=== PATIENT | male | born 1990 | race Caucasian/White ===

== ENCOUNTER 2018-12-10 16:22 | Outpatient (CLI) | payer MEDICAID, SELFPAY ==
[2018-12-10 18:04] LABS: Glucose 93 mg/dL (70-100)
[2018-12-10 18:23] LABS: Vitamin D 25 Total 27.4 ng/ml (30-100)
[2018-12-10 18:35] LABS: Vitamin B12 259 pg/mL (193-986)
== END 2018-12-10 16:42 ==
PROVIDERS: Internal Medicine Sleep Medicine; PCP General Practice; Visit Provider General Practice
DX: E55.9 Vitamin D deficiency, unspecified (principal); R53.83 Other fatigue; R73.09 Other abnormal glucose
CPT/HCPCS: 36415; 82306; 82947; 82607

== ENCOUNTER 2019-07-01 16:01 | Outpatient (CLI) | payer MEDICAID, SELFPAY ==
[2019-07-01 18:42] LABS: Vitamin D 25 Total 36.3 ng/ml (30-100)
[2019-07-01 18:46] LABS: Vitamin B12 557 pg/mL (193-986)
== END 2019-07-01 16:21 ==
PROVIDERS: PCP General Practice; Visit Provider Internal Medicine Sleep Medicine
DX: E55.9 Vitamin D deficiency, unspecified (principal); R53.83 Other fatigue
CPT/HCPCS: 36415; 82306; 82607

== ENCOUNTER 2019-10-14 13:47 | Outpatient (CLI) | payer MEDICAID, SELFPAY ==
[2019-10-14 14:55] LABS: Hemoglobin A1C 10.9 % (4.5-6.2)
[2019-10-14 15:16] LABS: Anion Gap 13.6 mmol/L (3-11); BUN 20 mg/dL (7-18); CO2 23.4 mmol/L (21.0-32.0); CREATININE 1.27 mg/dL (0.70-1.30); Calcium 10.1 mg/dL (8.5-10.1); Chloride 90 mmol/L (98-107); Potassium 4.5 mmol/L (3.5-5.1); Sodium 127 mmol/L (136-145)
[2019-10-14 15:32] LABS: Glucose 709 mg/dL (74-106)
[2019-10-15 15:16] LABS: PSA, Screening 0.5 ng/mL (0.0-2.5)
== END 2019-10-14 14:07 ==
PROVIDERS: PCP Family Medicine; Visit Provider Nurse Practitioner Gerontology
DX: N28.9 Disorder of kidney and ureter, unspecified (principal); R81 Glycosuria; R35.0 Frequency of micturition; R39.9 Unspecified symptoms and signs involving the genitourinary system; Z12.5 Encounter for screening for malignant neoplasm of prostate
CPT/HCPCS: 36415; 80048; 84153; 83036

== ENCOUNTER 2019-10-14 16:25 | Emergency (ER) | payer MEDICAID, SELFPAY ==
[2019-10-14 16:28] VITALS: BP 131/96; PULSE 103; RESP 16; TEMP 36.2; O2SAT 96
[2019-10-14 16:37] VITALS: RESP 16
--- NOTE | 2019-10-14 16:57 | W.ED.GENAD ---
Discharge Plan Disposition Patient Disposition: HOME Condition: Good Discharge Details Chief Complaint: Diabetes Clinical Impression: Diabetes, Acute hyperglycemia Primary Care Provider: Livan Stevenson ED Provider: Mohsen Jenkins Home Meds and New Rx's Prescriptions: New (DME) Advanced Gluc Meter Test Strip Strip See Rx Instructions .ROUTE .MEDSUPPLY Qty: 50 RF: 0 (DME) blood-glucose meter Kit See Rx Instructions .ROUTE .MEDSUPPLY Qty: 1 RF: 0 metformin 500 mg tablet 500 mg PO BID 30 Days Qty: 60 RF: 0 No Action venlafaxine 100 MG tablet 225 mg PO DAILY AM RF: 0 Discharge Instructions Instructions: How to Check Your Blood Sugar (ED), Meal Planning with Diabetes Exchanges (GEN), Diabetic Hyperglycemia (ED) Additional Instructions: It does appear that you have diabetes. At this time it is important to follow-up closely with your primary care provider. Please check your blood sugars every 6-8 hours monitor them closely and document them regularly. As we discussed please do your best to exercise as often as possible, avoid any sugars, carbs, other things that can worsen your diabetes. Drink plenty of fluids. If you notice any worsening of your symptoms, or any new symptoms such as vomiting, diarrhea, fever, chills, shortness of breath, chest pain, numbness, weakness, or fainting , please return immediately to the emergency department for reevaluation. Please follow up with your primary care provider as soon as possible for reassessment and reevaluation. As always, it was a pleasure participating in your medical care today. Referrals: Livan Stevenson [Primary Care Provider] - Discharge Data Discharge Date/Time-TO BE ENTERED AT DEPARTURE: 10/14/19 17:33 Medical Decision Making This is a very pleasant 29-year-old male with no significant past medical history but who does have a family history positive for type 2 diabetes who presents today for laboratory abnormality. Labs were drawn secondary to his polydipsia that he has been having. Sodium was noted to be low, sugar was 700, and hemoglobin A1c was greater than 10. Aside for the symptoms of polydipsia the patient has no other complaints of vision changes, fever, flank pain, or any other complaints including mental status change. Physical exam is unremarkable, vital signs stable. Bedside Accu-Chek demonstrates a blood sugar of 483, decision was made to give the patient a small amount of subcu insulin, blood sugar improved after this, with no other significant laboratory abnormalities I feel that there is no indication for IV or oral repeat labs at this time. The patient's excellent clinical disposition I do feel that he is stable for discharge. The patient's corrected sodium in respect to his glucose was within normal limits. We will start the patient on metformin, we had a long and thorough discussion regarding diet and lifestyle modifications, as well as the importance of prompt and close follow-up with his new primary care provider Dr. Jones since Dr. Sandoval is retiring. We will give a prescription for diabetic test strips, glucometer, and we discussed red flags for which to return. I have extensively reviewed the treatment plan and discharge instructions with the patient and their family. I have addressed all patient concerns at this time. The patient and family was made aware of what symptoms to monitor for that would warrant a return to the emergency department. Discussed the plan with the patient and family, they demonstrate verbal understanding and agreement with our assessment and plan at this time. First dose of metformin 500 mg was given here in the ED. clinically at this time the patient shows no signs or symptoms consistent with DKA or HH NK. HPI General Date/Time Provider Initiated Documentation: 10/14/19 16:27. HPI Narrative: This is a 29-year-old male with no significant past medical history who presents today for evaluation of abnormal labs. The patient is being seen on an outpatient basis for polydipsia with urology. Basic labs were ordered, and blood sugars on the labs were 700 for glucose, with an A1c greater than 10, and a low sodium. Patient was told to come to the ER for further evaluation. Patient states aside for his chronic polydipsia he denies any other complaints. He denies vision changes, chest pain, shortness of breath, nausea vomiting or diarrhea. He states that he feels absolutely great. He denies any other modifying factors. No other complaints at this time. He does have a family history of type 2 diabetes which is usually controlled with diet exercise and healthy living. He denies any history of type 1 diabetes in the family, he has no other complaints at this time. He states that he feels very well. Related Data Home Medications Medication Instructions Recorded Confirmed venlafaxine 225 mg PO DAILY AM 04/25/17 12/12/19 blood sugar diagnostic [Advanced #50 each 10/14/19 Gluc Meter Test Strip] blood-glucose meter #1 each 10/14/19 metformin 500 mg PO BID 30 Days #60 tab 10/14/19 Previous Rx's Medication Instructions Recorded blood sugar diagnostic [Advanced #50 each 10/14/19 Gluc Meter Test Strip] blood-glucose meter #1 each 10/14/19 metformin 500 mg PO BID 30 Days #60 tab 10/14/19 Allergies Allergy/AdvReac Type Severity Reaction Status Date / Time No Known Allergies Allergy Verified 10/14/19 12:55 General Stated Complaint: Diabetes JORDIN: 3 Review of Systems All systems reviewed & are unremarkable except as noted in HPI and below PFSH Surgical History (Updated 08/19/18 @ 14:33 by [place] [email or web address] [place]) Repair of inguinal hernia (~1990) Tooth extraction (~1991) ROOT CANALS Family History (Updated 09/27/19 @ 09:34 by Hira Prater) Mother No problems noted. Father Diabetes Sister Asthma Depression Maternal Grandfather , age 87 No problems noted. Paternal Grandfather No problems noted. Paternal Grandmother , age 90 No problems noted. Maternal Grandmother No problems noted. Social History (Updated 09/27/19 @ 09:32 by Hira Prater) Smoking/Tobacco Use Status: Never Alcohol Intake: never Drug use: Never Substance use type: does not use Household members: family Housing: house Communication Needs: None Do you need help understanding health information?: Rarely Pets and animals: Yes Pets and animals: cat(s) and other Details: Rabbits Sexually active: No Do you think of yourself as: bisexual Current gender identity: decline to answer What is your relationship status?: never How often do you talk on the phone with friends or family?: once per week How often do you get together with friends or relatives?: never How often do you attend quaker or advent services?: decline to answer Do you belong to any clubs or organized social groups?: no Panel score (0-1 are the most socially isolated patients): 0 What type of physical activity do you participate in: decline to answer Duration: decline to answer Frequency: decline to answer Darleen/Gnosticist: none Special darleen needs: No Seatbelt use: always Drive intox or ride w/intox 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 3.ENT: Atraumatic external nose and ears. Moist MM. Neck: Symmetric, trachea midline, No thyromegaly. 4.CVS: +S1/S2, No murmurs or gallops. Peripheral pulses 2+ and equal in all extremities. Brisk capillary refill in all extremities. 5.RESP: Unlabored respiratory effort. Clear to auscultation bilaterally. No wheezes rales or rhonchi 6.GI: Soft, Nontender/Nondistended, No hepatosplenomegaly. No guarding or rebound. 7.MSK: Normocephalic/Atraumatic, Extremities w/o deformity or ttp No cyanosis or clubbing, Normal movement of all extremities 8.Skin: Warm, Dry. No rashes or lesions. 9.Neuro: inspector experimental assembly II-XII grossly intact. Sensation grossly intact, no focal neurologic deficits. 10.Psych: (AAO) x3. Appropriate mood and affect Course Vital Signs Vital signs: Vital Signs Temperature 36.2 C L 10/14/19 16:28 Pulse 103 H 10/14/19 16:28 Respiratory Rate 16 10/14/19 16:28 Blood Pressure 131/96 H 10/14/19 16:28 Pulse Oximetry 96 10/14/19 16:28 Temperature 36.2 C L 10/14/19 16:28 Temperature Source Temporal Artery Scan 10/14/19 16:28 Pulse 103 H 10/14/19 16:28 Respiratory Rate 16 10/14/19 16:37 Respiratory Effort 10/14/19 16:39 Respiratory Depth Normal 10/14/19 16:37 Respiratory Pattern Irregular 10/14/19 16:37 Blood Pressure 131/96 H 10/14/19 16:28 Blood Pressure Position Sitting 10/14/19 16:28 Pulse Oximetry 96 10/14/19 16:28 Oxygen Delivery Method Room Air 10/14/19 16:28 Oxygen Flow Rate 0 10/14/19 16:28 Pain Level 0 10/14/19 16:28
[2019-10-14] MEDS: metFORMIN 500 MG TAB PO (17:06)
[2019-10-14] MEDS: Insulin REGULAR-Human 100 UNITS/ML UNIT 7 UNITS SC (17:06)
[2019-10-14 17:29] VITALS: BP 129/92; PULSE 90; RESP 16; TEMP 36.5; O2SAT 97
== END 2019-10-14 17:33 | disposition home or self-care (01) ==
PROVIDERS: Emergency Provider Student in an Organized Health Care Education/Training Program; PCP Family Medicine
DX: E11.65 Type 2 diabetes mellitus with hyperglycemia; E11.9 Type 2 diabetes mellitus without complications
CPT/HCPCS: 36416; 82962; 96372; 99284

== ENCOUNTER 2019-10-19 17:46 | Observation (INO) | payer MEDICAID, SELFPAY ==
[2019-10-19] VITALS (12 sets, daily range): BP systolic 102–148; BP diastolic 59–108; PULSE 90–130; RESP 12–22; TEMP 36.6–37; O2SAT 95–97
--- NOTE | 2019-10-19 17:47 | W.ED.GENAD ---
Discharge Plan Disposition Patient Disposition: [facility] INPATIENT Condition: Fair Discharge Details Chief Complaint: GenMedical Clinical Impression: High anion gap metabolic acidosis, Diabetes mellitus Primary Care Provider: Livan Stevenson ED Provider: Kevin Guadalupe [place] and New Rx's Prescriptions: No Action (DME) lancets [FreeStyle Lancets] 28 gauge misc See Rx Instructions .ROUTE .MEDSUPPLY Qty: 100 RF: 1 venlafaxine 75 mg capsule,extended release 24hr 75 mg PO DAILY RF: 0 venlafaxine 150 mg capsule,extended release 24hr 150 mg PO DAILY RF: 0 metformin 1,000 mg tablet extended release 24hr 1,000 mg PO QPM Qty: 30 RF: 11 metformin 500 mg tablet extended release 24hr 500 mg PO QPM Qty: 30 RF: 11 (DME) Advanced Gluc Meter Test Strip Strip See Rx Instructions .ROUTE .MEDSUPPLY Qty: 50 RF: 0 (DME) blood-glucose meter Kit See Rx Instructions .ROUTE .MEDSUPPLY Qty: 1 RF: 0 Medical Decision Making <Mohsen Jenkins, - Last Filed: 10/19/19 19:28> This is a pleasant 29-year-old male who was a started on metformin as he was just recently diagnosed with type 2 diabetes. He presents today for electrolyte abnormalities and evidence of dehydration. He has been taking his Chuy but also at the same time switch to a notably ketotic diet. He has had some mild nausea and one episode of vomiting he has been drinking less. He felt weak and dehydrated. He went to see his PCP where his CO2 was notably low, anion gap was elevated at 19. He was sent to the ER for further evaluation. Exam demonstrates notably dry mucous membranes. Differential is highest for HHN K as well as potential metformin induced lactic acidosis. We will aggressively rehydrate, evaluate his labs, and reassess. 7:26 PM Patient is receiving his fluid at this time. 3 L is being administrated, he is feeling slightly better, heart rate is notably improved. We will get a repeat labs after fluid administration. If he does require more fluid I would recommend lactated Ringer's. While pending repeat labs we signed out to my colleague Dr. Guadalupe for final disposition management after reassessment. If he does not demonstrate a significant improvement he may require admission. At this time his sugar is only 200 which is certainly mildly unremarkable compared to his normal 500's and 700's that he chronically runs. I do not currently see an indication for insulin at this time especially that he is a type II diabetic. Waiting on urinalysis for him. <Kevin Guadalupe MD - Last Filed: 10/19/19 21:38> Patient was signed out to me pending repeat BMP after 3 L of normal saline. Unfortunately the patient's bicarb and anion gap are worse not better. His mental status and vital signs are normal. He feels better. It is not a lactic acidosis related to the metformin. It is unlikely to be diabetic ketoacidosis but possible. More likely starvation ketoacidosis related to marketed decrease in carbohydrate consumption by patient once he found out he was diabetic. Also decrease in po intake due to nausea and vomiting presumably from the metformin he was started on. At this point I am going to hang D5LR with 20 of potassium. We will check fingersticks every 1 hour and dose with insulin as needed. Will need a nutrition consult. Encourage to take Zofran so that he can try to eat some complex carbs. Discussed with patient and mother. Will plan admission to hospital. Discussed with Dr. Sandoval. Lab Data Lab results reviewed: Yes I reviewed the patient's lab results. ECG Data Attestation: I personally reviewed and interpreted this ECG (s) as follows: Prior ECG tracings: not available for review Interpretation: Sinus rhythm at 89. Normal axis and intervals. No acute ST changes. HPI <Mohsen Jenkins DO - Last Filed: 10/19/19 19:28> General Date/Time Provider Initiated Documentation: 10/19/19 17:46. HPI Narrative: This is a 29-year-old male who was recently diagnosed as a type II diabetic who presents today for evaluation of potential acidosis and dehydration. Patient was recently diagnosed as a diabetic and started on metformin, he is only been on this for the last week. At the same time he notably switched his diet with a ketotic diet. He has had some mild nausea and one episode of vomiting, particularly last 24 to 48 hours. He has been drinking less because of this. He has been feeling more fatigued, generalized weakness. He is felt very thirsty. Sugars have been notably improving though at home. He went and saw his PCP earlier today who did draw labs and noticed evidence of low bicarb, high anion gap, with concern for acidosis. Patient was sent to the ER for for evaluation and management. Currently the patient has no complaints aside for his mild weakness and dry mouth. He is extremely pleasant. He denies chest pain, shortness of breath, syncope, numbness, tingling weakness. He denies any other complaints at this time. No other modifying factors. Related Data Home Medications Medication Instructions Recorded Confirmed blood sugar diagnostic [Advanced #50 each 10/14/19 10/19/19 Gluc Meter Test Strip] blood-glucose meter #1 each 10/14/19 10/19/19 lancets 28 gauge #100 each 10/15/19 10/19/19 metformin 1,000 mg tablet,extended 1,000 mg PO QPM #30 tab 10/19/19 10/19/19 release 24hr metformin 500 mg tablet,extended 500 mg PO QPM #30 tab 10/19/19 10/19/19 release 24hr venlafaxine 150 mg 150 mg PO DAILY 10/19/19 10/19/19 capsule,extended release 24 hr venlafaxine 75 mg capsule,extended 75 mg PO DAILY 10/19/19 10/19/19 release 24 hr Previous Rx's Medication Instructions Recorded blood sugar diagnostic [Advanced #50 each 10/14/19 Gluc Meter Test Strip] blood-glucose meter #1 each 10/14/19 lancets 28 gauge #100 each 10/15/19 metformin 1,000 mg tablet,extended 1,000 mg PO QPM #30 tab 10/19/19 release 24hr metformin 500 mg tablet,extended 500 mg PO QPM #30 tab 10/19/19 release 24hr Allergies Allergy/AdvReac Type Severity Reaction Status Date / Time No Known Allergies Allergy Verified 10/19/19 09:20 General JORDIN: 3 Review of Systems <Mohsen Jenkins DO - Last Filed: 10/19/19 19:28> All systems reviewed & are unremarkable except as noted in HPI and below PFS <Mohsen Jenkins DO - Last Filed: 10/19/19 19:28> Surgical History Repair of inguinal hernia (~1990) Tooth extraction (~1991) ROOT CANALS Family History Mother No problems noted. Father Diabetes Sister Asthma Depression Maternal Grandfather , age 87 No problems noted. Paternal Grandfather No problems noted. Paternal Grandmother , age 90 No problems noted. Maternal Grandmother No problems noted. Social History Smoking/Tobacco Use Status: Never Alcohol Intake: never Drug use: Never Substance use type: does not use Household members: family Housing: house Communication Needs: None Do you need help understanding health information?: Rarely Pets and animals: Yes Pets and animals: cat(s) and other Details: Rabbits Sexually active: No Do you think of yourself as: bisexual Current gender identity: decline to answer What is your relationship status?: never How often do you talk on the phone with friends or family?: once per week How often do you get together with friends or relatives?: never How often do you attend mormon or evangelical services?: decline to answer Do you belong to any clubs or organized social groups?: no Panel score (0-1 are the most socially isolated patients): 0 What type of physical activity do you participate in: decline to answer Duration: decline to answer Frequency: decline to answer Darleen/Gnosticism: none Special darleen needs: No Seatbelt use: always Drive intox or ride w/intox 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 3.ENT: Atraumatic external nose and ears. Notably dry MM. Neck: Symmetric, trachea midline, No thyromegaly. 4.CVS: +S1/S2, No murmurs or gallops. Peripheral pulses 2+ and equal in all extremities. Brisk capillary refill in all extremities. 5.RESP: Unlabored respiratory effort. Clear to auscultation bilaterally. No wheezes rales or rhonchi 6.GI: Soft, Nontender/Nondistended, No hepatosplenomegaly. No guarding or rebound. 7.MSK: Normocephalic/Atraumatic, Extremities w/o deformity or ttp No cyanosis or clubbing, Normal movement of all extremities 8.Skin: Warm, Dry. No rashes or lesions. 9.Neuro: green end worker II-XII grossly intact. Sensation grossly intact, no focal neurologic deficits. 10.Psych: (AAO) x3. Appropriate mood and affect Sign Out <Mohsen Jenkins DO - Last Filed: 10/19/19 19:28> Sign Out Data: Sign Out Comment: Pending repeat basic metabolic panel after fluid administration. If acidosis and bicarb improve, expected discharge. If no improvement, potential admission. Last updated by Mohsen Jenkins DO at 10/19/19 19:30
[2019-10-19] MEDS: Normal Saline 1,000 ML 1000 ML IV ×3 (18:01→19:17)
[2019-10-19 18:05] LABS: HCO3 (Venous) 12 mmol/L (22-28); O2 Sat (Venous) 87 % (70-80); TCO2 (Venous) 10 mmol/L (22-29); pCO2 (Venous) 28 mm/Hg (34-47); pH (Venous) 7.23 (7.32-7.43); pO2 (Venous) 54 mm/Hg (28-44)
[2019-10-19 18:06] LABS: Abs Immature Grans 0.08 k/cumm (0.0-0.09); Absolute Basophil Count 0.04 k/cumm (0.0-0.2); Absolute Eosinophil Count 0.09 k/cumm (0.0-0.7); Absolute Lymphocyte Count 3.37 k/cumm (1.2-3.4); Absolute Monocyte Count 1.19 k/cumm (0.11-0.7); Absolute Neutrophil Count 5.24 k/cumm (1.2-6.7); Basophils % 0.4; Eosinophils % 0.9; HCT 45.2 % (40.0-50.0); HGB 15.7 g/dL (13.5-17.5); Immature Grans % 0.8; Lactate 1.3 mmol/L (0.6-1.4); Lymphocytes % 33.7; Mean Corp. HGB Concentration 34.7 g/dL (32.0-36.0); Mean Corpuscular Hemoglobin 27.5 pg (27.0-33.0); Mean Corpuscular Volume 79.3 fL (80-95); Mean Platelet Volume 10.6 fL (8.0-11.0); Monocytes % 11.9; Neutrophils % 52.3; Platelet Count 327 x1000/uL (130-400); RBC Distribution Width 13.6 % (11.8-14.1); White Blood Cell Count 10.01 k/cumm (4.4-10.8)
[2019-10-19 18:27] LABS: ALT 99 U/L (16-63); AST 39 U/L (15-37); Albumin 4.2 g/dL (3.4-5.0); Alkaline Phosphatase 91 U/L (46-116); Anion Gap 21.1 mmol/L (3-11); BUN 14 mg/dL (7-18); Bilirubin, Total 0.6 mg/dL (0.2-1.0); CO2 12.9 mmol/L (21.0-32.0); CREATININE 1.18 mg/dL (0.70-1.30); Calcium 9.5 mg/dL (8.5-10.1); Chloride 101 mmol/L (98-107); Glucose 227 mg/dL (74-106); Lipase 123 U/L (73-393); Potassium 3.5 mmol/L (3.5-5.1); Sodium 135 mmol/L (136-145); Total Protein 8.8 g/dL (6.4-8.2)
[2019-10-19 19:35] LABS: Bilirubin Small (Negative); Blood Small (Negative); Clarity Clear (Clear); Glucose 100 mg/dL (Negative); Ketones >=160 mg/dL (Negative); Leukocyte Esterase Negative (Negative); Nitrite Negative (Negative); Specific Gravity >= 1.030 (1.005-1.025); Urobilinogen 0.2 EU/dL (Up TO 0.2); pH 5.5 (5-8)
[2019-10-19 19:45] LABS: Bacteria Negative HPF (Negative); C & S Indicated? No; Casts 10-20 Hyaline LPF (Negative); Crystals Negative HPF (Negative); Epithelial Cells Many HPF (Negative); Mucus Moderate (Negative); RBC 0-2 HPF (0-2); WBC 0-2 HPF (0-5)
[2019-10-19 20:22] LABS: Anion Gap 21.5 mmol/L (3-11); BUN 13 mg/dL (7-18); CO2 12.5 mmol/L (21.0-32.0); Calcium 8.4 mg/dL (8.5-10.1); Chloride 105 mmol/L (98-107); Glucose 183 mg/dL (74-106); Potassium 3.3 mmol/L (3.5-5.1); Sodium 139 mmol/L (136-145)
[2019-10-19] MEDS: Ondansetron 4 MG/2 ML VIAL IVP (21:17)
--- NOTE | 2019-10-19 21:26 | W.PM.HP.N ---
Date of service: 10/19/19 Time of Service: 21:26 Assessment and Plan Assessment and plan (1) Acidosis: Status: Acute Assessment and plan: Acidosis, posibly multifatorial, including starvation ketosis, MIKAEL-type DKA, and perhaps an lemnet of lactic acidosis from he metformin. Will hold Metformin, resume feeding an will treat for DKA with insulin infusion (and D5 given sugar level). Will track sugars q1-2 and electrolytes q4. History of Present Illness History of Present Illness Chief Complaint: acidosis Narrative: 29 male with recently diagnosed diabetes, started on metformin. has placd himself on strict no CHO diet. Reports some nausea, sen by PCP today and acidois noted with HCO3 of 15. SDent to ER. In ER findings of note or sugar o 183, HCO3 12.8, lactate 1.0, + ketonuria and venous pH 7.23. Patient givn NS x 3 L, single dose Zofran and admited for further management. At present patient states h is feeling well and valle had some fish to eat. Denies ASA use or other toxic ingestions. Review of Systems All systems reviewed & are unremarkable except as noted in HPI and below PFSH Surgical History Repair of inguinal hernia (~1990) Tooth extraction (~1991) ROOT CANALS Family History Mother No problems noted. Father Diabetes Sister Asthma Depression Maternal Grandfather , age 87 No problems noted. Paternal Grandfather No problems noted. Paternal Grandmother , age 90 No problems noted. Maternal Grandmother No problems noted. Social History Smoking/Tobacco Use Status: Never Alcohol Intake: never Drug use: Never Substance use type: does not use Household members: family Housing: house Communication Needs: None Do you need help understanding health information?: Rarely Pets and animals: Yes Pets and animals: cat(s) and other Details: Rabbits Sexually active: No Do you think of yourself as: bisexual Current gender identity: decline to answer What is your relationship status?: never How often do you talk on the phone with friends or family?: once per week How often do you get together with friends or relatives?: never How often do you attend protestant or protestant services?: decline to answer Do you belong to any clubs or organized social groups?: no Panel score (0-1 are the most socially isolated patients): 0 What type of physical activity do you participate in: decline to answer Duration: decline to answer Frequency: decline to answer Darleen/Christian: none Special darleen needs: No Seatbelt use: always Drive 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 Do you feel safe at home: Yes Do you feel safe in your relationship?: Yes Meds Home Medications and Allergies Home Medications Medication Instructions Recorded Confirmed Type blood sugar diagnostic [Advanced #50 each 10/14/19 10/19/19 Rx Gluc Meter Test Strip] blood-glucose meter #1 each 10/14/19 10/19/19 Rx lancets 28 gauge #100 each 10/15/19 10/19/19 Rx metformin 1,000 mg tablet,extended 1,000 mg PO QPM #30 tab 10/19/19 10/19/19 Rx release 24hr metformin 500 mg tablet,extended 500 mg PO QPM #30 tab 10/19/19 10/19/19 Rx release 24hr venlafaxine 150 mg 150 mg PO DAILY 10/19/19 10/19/19 History capsule,extended release 24 hr venlafaxine 75 mg capsule,extended 75 mg PO DAILY 10/19/19 10/19/19 History release 24 hr Allergies Allergy/AdvReac Type Severity Reaction Status Date / Time No Known Allergies Allergy Verified 10/19/19 09:20 Exam Narrative Exam Narrative: 106-145/82-108, 90, 22, 36.6. HEENT AT/NC; neck supple; lungs clear; Heart RRR w/o mrg; abdomen soft and NT; extremities w/o edema. Neuro non-focal Results Labs Result diagrams: 10/19/19 18:00 10/19/19 19:45 Labs: Laboratory Results - last 24 hr 10/19/19 10/19/19 10/19/19 18:00 18:00 18:00 WBC 10.01 RBC 5.70 Hgb 15.7 Hct 45.2 MCV 79.3 L MCH 27.5 MCHC 34.7 RDW 13.6 Plt Count 327 MPV 10.6 Immature Gran % 0.8 Neutrophils % 52.3 Lymphocytes % 33.7 Monocytes % 11.9 Eosinophils % 0.9 Basophils % 0.4 Absolute Neutrophils 5.24 Absolute Lymphocytes 3.37 Absolute Monocytes 1.19 H Absolute Eosinophils 0.09 Absolute Basophils 0.04 VBG pH VBG pCO2 VBG pO2 VBG HCO3 VBG Total CO2 VBG O2 Saturation VBG Base Excess Sodium 135 L Potassium 3.5 Chloride 101 Carbon Dioxide 12.9 L Anion Gap 21.1 H BUN 14 Creatinine 1.18 Estimated GFR/1.73 m2 >= 60.00 Glucose 227 H Lactate 1.3 Calcium 9.5 Total Bilirubin 0.6 AST 39 H ALT 99 H Alkaline Phosphatase 91 Total Protein 8.8 H Albumin 4.2 Lipase 123 Urine Color Urine Clarity Urine pH Ur Specific [place] Urine Protein Urine Ketones Urine Blood Urine Nitrite Urine Bilirubin Urine Urobilinogen Ur Leukocyte Esterase Urine RBC Urine WBC Ur Epithelial Cells Urine Crystals Urine Bacteria Urine Casts Urine Mucus Ur Culture Indicated? Urine Glucose 10/19/19 10/19/19 10/19/19 18:00 19:30 19:45 WBC RBC Hgb Hct MCV MCH MCHC RDW Plt Count MPV Immature Gran % Neutrophils % Lymphocytes % Monocytes % Eosinophils % Basophils % Absolute Neutrophils Absolute Lymphocytes Absolute Monocytes Absolute Eosinophils Absolute Basophils VBG pH 7.23 L VBG pCO2 28 L VBG pO2 54 H VBG HCO3 12 L VBG Total CO2 10 L VBG O2 Saturation 87 H VBG Base Excess Sodium 139 Potassium 3.3 L Chloride 105 Carbon Dioxide 12.5 L Anion Gap 21.5 H BUN 13 Creatinine 1.10 Estimated GFR/1.73 m2 >= 60.00 Glucose 183 H Lactate Calcium 8.4 L Total Bilirubin AST ALT Alkaline Phosphatase Total Protein Albumin Lipase Urine Color Yellow Urine Clarity Clear Urine pH 5.5 Ur Specific [place] >= 1.030 H Urine Protein 100 H Urine Ketones >=160 H Urine Blood Small H Urine Nitrite Negative Urine Bilirubin Small H Urine Urobilinogen 0.2 Ur Leukocyte Esterase Negative Urine RBC 0-2 Urine WBC 0-2 Ur Epithelial Cells Many Urine Crystals Negative Urine Bacteria Negative Urine Casts 10-20 hyaline Urine Mucus Moderate Ur Culture Indicated? No Urine Glucose 100 Last Vital Signs Temp 36.6 C 10/19/19 17:49 Pulse 90 10/19/19 20:39 Resp 22 10/19/19 20:39 BP 145/108 H 10/19/19 17:49 Pulse Ox 96 10/19/19 20:39
[2019-10-19] MEDS: INSULIN REGULAR IN 0.9 % NACL 100 UNIT/100 ML BAG IV (23:08)
[2019-10-19 23:27] LABS: Chloride 106 mmol/L (98-107); Potassium 3.3 mmol/L (3.5-5.1); Sodium 138 mmol/L (136-145)
[2019-10-20] VITALS (111 sets, daily range): BP systolic 111–154; BP diastolic 74–106; PULSE 65–112; RESP 7–29; TEMP 36.1–36.6; O2SAT 94–98
[2019-10-20 01:26] LABS: Anion Gap 15.4 mmol/L (3-11); CO2 14.6 mmol/L (21.0-32.0); Chloride 107 mmol/L (98-107); Potassium 3.2 mmol/L (3.5-5.1); Sodium 137 mmol/L (136-145)
[2019-10-20] MEDS: POTASSIUM CHLORIDE/D5-0.9%NACL 1,000 ML 125 MEQ IV ×2 (02:18→10:42)
[2019-10-20 07:01] LABS: Anion Gap 14.9 mmol/L (3-11); CO2 16.1 mmol/L (21.0-32.0); Chloride 107 mmol/L (98-107); Potassium 3.1 mmol/L (3.5-5.1); Sodium 138 mmol/L (136-145)
[2019-10-20] MEDS: Venlafaxine 150 MG CAPCR PO (09:00)
[2019-10-20] MEDS: Potassium Chloride 20 MEQ TABCR PO ×3 (09:00→09:07)
--- NOTE | 2019-10-20 09:23 | PDOC.CMIN ---
Care Management Initial Assess REASON FOR HOSPITALIZATION:: Ketoacidosis PAST MEDICAL HISTORY/PAST SURGICAL HISTORY:: Repair of inguinal hernia, tooth extraction, root canals, enlarged prostate, new diabetes diagnosis, high anion gap metabolic acidosis (10/19/19) admission. PREVIOUS FUNCTIONAL STATUS/SOCIAL/FAMILY SUPPORTS:: Aayush resides in [place], [place] with his mother, Shannon. CURRENT FUNCTIONAL STATUS:: Aayush is sitting up in his chair, Mom at his side, meeting with Bhargavi regarding discharge planning. Anticipates he is leaving shortly. ADVANCE DIRECTIVES:: None on file at [facility]. Has patient been provided with information about the portal?: No Did the patient sign up for the portal?: No CODE STATUS:: Full Code INSURANCE COVERAGE / FINANCIAL ISSUES:: Medicaid CURRENT HOME/COMMUNITY SERVICES/EQUIPMENT:: No current services or equipment PRIMARY CARE PHYSICIAN:: Livan Stevenson POTENTIAL DISCHARGE NEEDS:: Diabetic Education attachment with Bhargavi Adams, [facility] referral. PATIENT/FAMILY EDUCATION NEEDS:: Review discharge instructions, discuss Ask Me Three. ANTICIPATED BARRIERS TO DISCHARGE:: None identified. TRANSPORTATION:: Via private vehicle with family. PLAN:: Aayush will discharge home when ready per MD, he will follow up with his PCP and plan of care as prescribed. He will have new referrals for [facility] RNCM and diabetic education. CM will continue to follow and support discharge planning considerations.
[2019-10-20] MEDS: INSULIN REGULAR IN 0.9 % NACL 100 UNIT/100 ML BAG 9.5 UNIT IV (09:57)
--- NOTE | 2019-10-20 10:05 | PHARADMIT ---
Admission Pharmacy Clinical Review Code Status Full Code Current Weight 125 kg Renally Cleared and Narrow Therapeutic Index Meds CrCl ~99ml/min QTc Value / Action Taken QTc 431 BP Control, Fever BP 123/87, afebrile Electrolytes reviewed Na 138, K+ 3.1, Mag - not drawn DVT Prophylaxis Opiate Usage / Scheduled Bowel Regimen Ordered Plt/SCr for Heparin / Enoxaparin SCr 1.10 INR for Warfarin H/H stable, WBC/Bands H/H 15.7/45.2 Antibiotic appropriateness Cultures and Sensitivities Surgical ABX d/c within 24 hr DM control / Insulin Dosing Insulin drip @ 9.5U/hr Heart Failure (Check EF%) (MIRTA's, B-Block, Diuretics) IV to PO Switch Home Meds Reviewed Yes Home Meds Not Ordered Metformin (possible lactic acidosis) Comments Recently diagnosed with type II diabetes Acidosis is possibly multi-factorial - MIKAEL-type DKA, lactic acidosis from metformin and/or starvation ketosis: Dr. Guadalupe noted that pt's acidotic state is more likely starvation ketoacidosis as he significantly reduced his carbohydrate consumption once he found out he was diabetic plus decreased PO intake due to N/V from newly started metformin
[2019-10-20 11:40] LABS: Anion Gap 12.1 mmol/L (3-11); BUN 8 mg/dL (7-18); CO2 18.9 mmol/L (21.0-32.0); CREATININE 0.88 mg/dL (0.70-1.30); Calcium 8.5 mg/dL (8.5-10.1); Chloride 108 mmol/L (98-107); Glucose 133 mg/dL (74-106); Potassium 3.2 mmol/L (3.5-5.1); Sodium 139 mmol/L (136-145)
--- NOTE | 2019-10-20 12:09 | W.INDIABCONS ---
Date of service: 10/20/19 Time of Service: 12:09 Diabetes Inpatient Consult DESCRIPTION/ASSESSMENT: Appreciate diabetes consult for Mr. Kat who is hospitalized with newly diagnosed diabetes in Diabetic Ketoacidosis. [place] about his diabetes diagnosis from ER after blood work from urologist. He had polyuria and polydyspia until he received a dose of insulin this resolved for the most part. States he has been following a very low carbohydrate meal plan since his diagnosis. Currently taking Metformin but he believes this caused him to feel sick and vomit. Unclear if he is type 1 or type 2 at this time. A1c 10.9 BMI 40.7 INTERVENTION: Met with Quique and his mother to begin self management support. He saw pharmacist at [facility] yesterday for diabetes self management; reviewed diabetes food guide, A1c and glucose monitoring; ketone testing. He is already monitoring his blood sugars without difficulty. GIven that his A1c is greater than 10 and he experienced DKA, suggest he begin with basal/bolus insulin. Weight based insulin dosing at 125kg x .4 units/kg indicates total (given he also has insulin resistance) suggests total daily dose of 50units insulin. If half insulin is basal suggest LANTUS 25units and mealtime insulin 8 units at each meal with insulin correction at 140-170 - 1 unit; 171-200 - 2 units; 201-230 - 3 units; 231-260 - 4 units ADDED TO 8 UNITS FOR FOOD. The other option is to offer him 1 unit to cover 10 grams carbohydrate plus the above correction. PLAN: Suggest insulin dosing above; suggest they obtain ketone sticks from pharmacy Will return to instruct on insulin administration and further carbohydrate identification They will consider using Myfitnesspal to calculate carbohydrate intake per meal Time Spent in Nutritional Counseling and Treatment: 20 minutes face to face
[2019-10-20] MEDS: Insulin Glargine 300 UNITS/3 ML PEN 25 UNITS SC (12:21)
[2019-10-20] MEDS: Mylanta Suspension 30 ML CUP PO (12:38)
--- NOTE | 2019-10-20 16:21 | W.DIABETESNO ---
Date of service: 10/20/19 Time of Service: 16:21 Diabetes Note NOTE: Follow up visit for Aayush and his mother. Instructed and he was able to return demonstration for injecting insulin. He voices understanding of the 2 types, actions, administration, storage, injection sites, disposal of needles, hypoglycemia. Also offered additional carbohydrate counting resources, keto-stix instruction and when to use, log sheet for food, blood sugar, insulin dosing. Discussed mealtime dosing. Suggested 8 units per meal OR 1unit for 10 grams carbohydrate plus insulin correction at 140-170 - 1 unit; 171-200 - 2 units; 201-230 - 3 units; 231-260 - 4 units. These 2 systems have been explained to them and I suggested they discuss this with Dr. Martin regarding their preference for initiating a home regimen. They have no unanswered questions and have my contact information if they have questions. PLAN: They will need breezy needles, Lantus insulin at 25u nightly; Novolog at 25u daily spread over 3 meals; keto stix. They will purchase glucose tablets and have juice available at all times. Time Spent in Nutritional Counseling and Treatment: 20 minutes face to face
[2019-10-20 16:46] LABS: Anion Gap 13.5 mmol/L (3-11); BUN 8 mg/dL (7-18); CO2 19.5 mmol/L (21.0-32.0); CREATININE 1.01 mg/dL (0.70-1.30); Chloride 105 mmol/L (98-107); Glucose 174 mg/dL (74-106); Potassium 3.4 mmol/L (3.5-5.1); Sodium 138 mmol/L (136-145)
[2019-10-20] MEDS: Normal Saline Flush 10 ML SYR (17:16)
[2019-10-20] MEDS: Insulin Aspart 300 UNITS/3 ML PEN 8 UNITS SC (17:17)
--- NOTE | 2019-10-20 17:46 | DSE_ITS ---
Date of service: 10/20/19 Time of Service: 17:46 DS: Diagnosis Discharge Diagnosis (1) Acidosis: Status: Acute Asessment and Plan: Patient presented with diabetic ketoacidosis. Anion gap of 21, pH of 7.23. He corrected nicely with overnight fluids and an insulin infusion. He had diabetic teaching. He will be going home on basal bolus insulin therapy. Metformin was discontinued. 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 Now on insulin therapy. (3) Autism spectrum disorder: Status: Acute Asessment and Plan: Mild autism spectrum disorder. Well compensated. Discharge Plan Disposition Patient Disposition: HOME Condition: Improving Discharge Details Chief Complaint: GenMedical Clinical Impression: High anion gap metabolic acidosis, Diabetes mellitus Reason For Visit: KETOACIDOSIS Admit Date/Time: 10/19/19 21:39 Admit Provider: Angelo Sandoval Attending Provider: Angelo Sandoval Primary Care Provider: Livan Stevenson ED [facility] Hospital Course: This is a 29-year-old newly diagnosed diabetic. 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 His hemoglobin A1c is 10.9%. He presented a few days after having started metformin. He also went on an extremely low carbohydrate diet. On presentation he had a pH of 7.23, anion gap of 21, and moderate hypokalemia. He received copious IV fluids, potassium replacement, and was on an insulin infusion overnight. He closed his anion gap down to 13, his bicarb came up to 19.5. He was eating and drinking fine. He felt considerably better. He was seen by the clinical educator. It was decided that he would be on basal bolus insulin therapy going forward. He was trained on use of the glucometer and how to count carbohydrates. He will go home on 25 units of Lantus, and 8 units of aspart with meals. He will also have an insulin correction of 1 unit for 140 to 170, 2 units for 1 71-200, 3 units for 201 to 230, 4 units for 2 31-2 60. Home Meds and New Rx's Prescriptions: New Novolog Flexpen U-100 Insulin 100 unit/mL (3 mL) Insulin Pen 8 unit subcut 0800,1200,1700 Qty: 15 RF: 3 Levemir FlexTouch U-100 Insuln 100 unit/mL (3 mL) insulin pen 25 unit SC QHS Qty: 15 RF: 3 (DME) Advanced Gluc Meter Test Strip Strip See Rx Instructions .ROUTE .MEDSUPPLY Qty: 50 RF: 0 Continued (DME) lancets [FreeStyle Lancets] 28 gauge misc See Rx Instructions .ROUTE .MEDSUPPLY Qty: 100 RF: 1 venlafaxine 75 mg capsule,extended release 24hr 75 mg PO DAILY RF: 0 venlafaxine 150 mg capsule,extended release 24hr 150 mg PO DAILY RF: 0 (DME) blood-glucose meter Kit See Rx Instructions .ROUTE .MEDSUPPLY Qty: 1 RF: 0 Discontinued metformin 1,000 mg tablet extended release 24hr 1,000 mg PO QPM Qty: 30 RF: 11 metformin 500 mg tablet extended release 24hr 500 mg PO QPM Qty: 30 RF: 11 Discharge Instructions Instructions: Diabetic Ketoacidosis (GEN), Diabetes Mellitus Type 1 in Adults (GEN), Diabetes Mellitus Type 2 in Adults (GEN), Diabetic Foot Ulcers (DC) Stand Alone Forms: Nursing Discharge Form Activity:: Activity as Tolerated Equipment/Supplies:: Insulin and needles Diet:: Carb Counting Discharge Orders Discharge Orders: Discharge Order (Routine); Ordered 10/20/19 Ordered By: Arian Martin DS: Summary Status at Discharge Functional status at discharge: independent ambulation Overall status at discharge: patient is back to baseline Mental Status: mental status grossly normal Speech and Movement: speech and movement normal Mood: congruent mood Affect: normal affect Exam Narrative Exam Narrative: Patient in no distress. He is smiling, interactive. Lungs are clear bilaterally heart sounds are strong and regular. Abdomen is nontender. Lower extremities no edema. Foot exam showed no lesions. Neurologically no focal deficits. Psych Mental Status: mental status grossly normal Speech and Movement: speech and movement normal Mood: congruent mood Affect: normal affect DS: Data Vitals/I&O Vitals and I&O: Vital Signs Temperature 36.6 C 10/20/19 12:29 Temperature Source Temporal Artery Scan 10/20/19 12:29 Pulse 90 10/20/19 14:17 Pulse 92 H 10/20/19 14:17 Respiratory Rate 15 10/20/19 14:17 Respiratory Effort 10/20/19 12:29 Respiratory Depth Normal 10/20/19 12:29 Respiratory Pattern Normal 10/20/19 12:29 Blood Pressure 127/82 10/20/19 14:17 Blood Pressure Mean 92 10/20/19 14:17 Blood Pressure Position Supine 10/20/19 08:15 Pulse Oximetry 98 10/20/19 12:29 Oxygen Delivery Method Room Air 10/20/19 12:29 Oxygen Flow Rate 0 10/20/19 12:29 Fraction of Inspired Oxygen (FIO2) 21 10/20/19 07:44 Pain Level 5 10/20/19 12:29 Intake & Output 10/19/19 10/20/19 10/20/19 23:59 11:59 23:59 Intake Total 3207.500 / 3207.500 2064.501 / 4546.784 2482.283 / 4546.784 Output Total 1800 / 2500 700 / 2500 Balance 3207.500 / 3207.500 264.501 / 2046.784 1782.283 / 2046.784 Weight 117.3 kg 125 kg Intake: IV 3207.500 / 3207.500 1074.501 / 2356.784 1282.283 / 2356.784 Oral 990 / 2190 1200 / 2190 Output: Urine 1800 / 2500 700 / 2500 Other: Urine Color Pale Yellow Yellow Urine Appearance Clear Clear Urine Odor None Comment voids in urinal independently. voids in urinal independently. Voiding Methods Urinal Urinal Data Completed and Pending Labs on day of discharge: Labs from last 24 hours 10/20/19 10/20/19 10/20/19 16:20 11:07 06:10 WBC RBC Hgb Hct MCV MCH MCHC RDW Plt Count MPV Immature Gran % Neutrophils % Lymphocytes % Monocytes % Eosinophils % Basophils % Absolute Neutrophils Absolute Lymphocytes Absolute Monocytes Absolute Eosinophils Absolute Basophils VBG pH VBG pCO2 VBG pO2 VBG HCO3 VBG Total CO2 VBG O2 Saturation VBG Base Excess Sodium 138 139 Potassium 3.4 L 3.2 L Chloride 105 108 H Carbon Dioxide 19.5 L 18.9 L Anion Gap 13.5 H 12.1 H BUN 8 8 Creatinine 1.01 0.88 Estimated GFR/1.73 m2 >= 60.00 >= 60.00 Glucose 174 H 133 H C-Peptide ng/ml Pending Lactate Calcium 9.0 8.5 Total Bilirubin AST ALT Alkaline Phosphatase Total Protein Albumin Lipase Urine Color Urine Clarity Urine pH Ur Specific [place] Urine Protein Urine Ketones Urine Blood Urine Nitrite Urine Bilirubin Urine Urobilinogen Ur Leukocyte Esterase Urine RBC Urine WBC Ur Epithelial Cells Urine Crystals Urine Bacteria Urine Casts Urine Mucus Ur Culture Indicated? Urine Glucose 10/20/19 10/20/19 10/19/19 06:10 01:20 23:00 WBC RBC Hgb Hct MCV MCH MCHC RDW Plt Count MPV Immature Gran % Neutrophils % Lymphocytes % Monocytes % Eosinophils % Basophils % Absolute Neutrophils Absolute Lymphocytes Absolute Monocytes Absolute Eosinophils Absolute Basophils VBG pH VBG pCO2 VBG pO2 VBG HCO3 VBG Total CO2 VBG O2 Saturation VBG Base Excess Sodium 138 137 138 Potassium 3.1 L 3.2 L 3.3 L Chloride 107 107 106 Carbon Dioxide 16.1 L 14.6 L 12.0 L Anion Gap 14.9 H 15.4 H 20.0 H BUN Creatinine Estimated GFR/1.73 m2 Glucose C-Peptide ng/ml Lactate Calcium Total Bilirubin AST ALT Alkaline Phosphatase Total Protein Albumin Lipase Urine Color Urine Clarity Urine pH Ur Specific [place] Urine Protein Urine Ketones Urine Blood Urine Nitrite Urine Bilirubin Urine Urobilinogen Ur Leukocyte Esterase Urine RBC Urine WBC Ur Epithelial Cells Urine Crystals Urine Bacteria Urine Casts Urine Mucus Ur Culture Indicated? Urine Glucose 10/19/19 10/19/19 10/19/19 19:45 19:30 18:00 WBC RBC Hgb Hct MCV MCH MCHC RDW Plt Count MPV Immature Gran % Neutrophils % Lymphocytes % Monocytes % Eosinophils % Basophils % Absolute Neutrophils Absolute Lymphocytes Absolute Monocytes Absolute Eosinophils Absolute Basophils VBG pH 7.23 L VBG pCO2 28 L VBG pO2 54 H VBG HCO3 12 L VBG Total CO2 10 L VBG O2 Saturation 87 H VBG Base Excess Sodium 139 Potassium 3.3 L Chloride 105 Carbon Dioxide 12.5 L Anion Gap 21.5 H BUN 13 Creatinine 1.10 Estimated GFR/1.73 m2 >= 60.00 Glucose 183 H C-Peptide ng/ml Lactate Calcium 8.4 L Total Bilirubin AST ALT Alkaline Phosphatase Total Protein Albumin Lipase Urine Color Yellow Urine Clarity Clear Urine pH 5.5 Ur Specific [place] >= 1.030 H Urine Protein 100 H Urine Ketones >=160 H Urine Blood Small H Urine Nitrite Negative Urine Bilirubin Small H Urine Urobilinogen 0.2 Ur Leukocyte Esterase Negative Urine RBC 0-2 Urine WBC 0-2 Ur Epithelial Cells Many Urine Crystals Negative Urine Bacteria Negative Urine Casts 10-20 hyaline Urine Mucus Moderate Ur Culture Indicated? No Urine Glucose 100 10/19/19 10/19/19 10/19/19 18:00 18:00 18:00 WBC 10.01 RBC 5.70 Hgb 15.7 Hct 45.2 MCV 79.3 L MCH 27.5 MCHC 34.7 RDW 13.6 Plt Count 327 MPV 10.6 Immature Gran % 0.8 Neutrophils % 52.3 Lymphocytes % 33.7 Monocytes % 11.9 Eosinophils % 0.9 Basophils % 0.4 Absolute Neutrophils 5.24 Absolute Lymphocytes 3.37 Absolute Monocytes 1.19 H Absolute Eosinophils 0.09 Absolute Basophils 0.04 VBG pH VBG pCO2 VBG pO2 VBG HCO3 VBG Total CO2 VBG O2 Saturation VBG Base Excess Sodium 135 L Potassium 3.5 Chloride 101 Carbon Dioxide 12.9 L Anion Gap 21.1 H BUN 14 Creatinine 1.18 Estimated GFR/1.73 m2 >= 60.00 Glucose 227 H C-Peptide ng/ml Lactate 1.3 Calcium 9.5 Total Bilirubin 0.6 AST 39 H ALT 99 H Alkaline Phosphatase 91 Total Protein 8.8 H Albumin 4.2 Lipase 123 Urine Color Urine Clarity Urine pH Ur Specific [place] Urine Protein Urine Ketones Urine Blood Urine Nitrite Urine Bilirubin Urine Urobilinogen Ur Leukocyte Esterase Urine RBC Urine WBC Ur Epithelial Cells Urine Crystals Urine Bacteria Urine Casts Urine Mucus Ur Culture Indicated? Urine Glucose [facility] Medical History (Updated 10/20/19 @ 17:58 by Arian Martin MD) Autism spectrum disorder (Inactive) Diabetes mellitus (Inactive) Surgical History Repair of inguinal hernia (~1990) Tooth extraction (~1991) ROOT CANALS Family History Mother No problems noted. Father Diabetes Sister Asthma Depression Maternal Grandfather , age 87 No problems noted. Paternal Grandfather No problems noted. Paternal Grandmother , age 90 No problems noted. Maternal Grandmother No problems noted. Social History Smoking/Tobacco Use Status: Never Alcohol Intake: never Drug use: Never Substance use type: does not use Household members: family Housing: house Communication Needs: None Do you need help understanding health information?: Rarely Pets and animals: Yes Pets and animals: cat(s) and other Details: Rabbits Sexually active: No Do you think of yourself as: bisexual Current gender identity: decline to answer What is your relationship status?: never How often do you talk on the phone with friends or family?: once per week How often do you get together with friends or relatives?: never How often do you attend voodoo or catholic services?: decline to answer Do you belong to any clubs or organized social groups?: no Panel score (0-1 are the most socially isolated patients): 0 What type of physical activity do you participate in: decline to answer Duration: decline to answer Frequency: decline to answer Darleen/Islam: none Special darleen needs: No Seatbelt use: always Drive intox or ride w/intox ems driver: No Do you feel safe at home: Yes Do you feel safe in your relationship?: Yes
[2019-10-21 15:43] LABS: C-Peptide 3.6 ng/mL (1.1 - 4.4)
== END 2019-10-20 19:00 | disposition home or self-care (01) ==
LOC: ER 22:13 → ICU 22:47
PROVIDERS: Student in an Organized Health Care Education/Training Program; Admitting Provider General Practice; Emergency Provider Emergency Medicine; PCP Family Medicine; Visit Provider Family Medicine
DX: E13.10 Other specified diabetes mellitus with ketoacidosis without coma (principal); Z79.84 Long term (current) use of oral hypoglycemic drugs; E87.6 Hypokalemia; F84.0 Autistic disorder; Z71.3 Dietary counseling and surveillance
CPT/HCPCS: 36415; 36416; 80048; 80051; 80053; 82805; 82962; 83690; 85027; 86337; 86341; 93005; 96361; 96365; 96366; 96375; 99217; 99222; 99285; 81003; 81015; 83605; 84681; 85025; 93010; 99218; G0378; J2405

== ENCOUNTER 2019-10-25 00:37 | Outpatient (CLI) | payer MEDICAID, SELFPAY ==
--- NOTE | 2019-10-25 15:07 | DI.US_ITS ---
EXAM: US RENAL CLINICAL HISTORY: incomplete emptying with flank pain Hx of stones,R10.9 TECHNIQUE: Guillen scale, color and spectral Doppler were used. COMPARISON: RENAL COLIC WO CONTRAST from 09/04/2017 FINDINGS: Renal size in cm: Right: 11.1 left: 12.1 Echogenicity: Normal Hydronephrosis: No Cyst or mass: No Nephrolithiasis: No Other findings: None Bladder:Normal bladder wall thickness within normal limits at 2.4 mm. Both ureteral jets were visual ized. Prevoid vol:75 cc Postvoid vol:0 cc Liver: Increased echogenicity consistent with hepatic steatosis. IMPRESSION: 1. Normal renal ultrasound. 2. Findings suggesting hepatic steatosis. A hepatic ultrasound may be obtained for further evaluatio n.
== END 2019-10-25 00:57 ==
PROVIDERS: PCP Family Medicine; Visit Provider Nurse Practitioner Gerontology
DX: R10.31 Right lower quadrant pain (principal); R33.9 Retention of urine, unspecified; K76.0 Fatty (change of) liver, not elsewhere classified
CPT/HCPCS: 76770

== ENCOUNTER 2019-10-25 02:01 | Outpatient (CLI) | payer MEDICAID, SELFPAY ==
--- NOTE | 2019-10-25 13:30 | DIABASSESS_ITS ---
DESCRIPTION/ASSESSMENT: Aayush Kat presents for diabetes self management for his follow up appointment from his inpatient stay for DKA. At that time he was placed on insulin regimen of 25u basal insulin and 8 units mealtime insulin. He has been recording his food, blood sugar and insulin dosing since that time. In addition, he is calculating his carbohdyrate intake at a meal using 1 unit covers 10grams carbohydrate and 1 unit corrects 30mg/dl above 140mg/dl. He independently calculated in insulin for food and correction to equal 8 units per meal by adjusting his carbohydrate intake based on his blood sugar. Fasting blood sugars 203-144; post breakfast 234-297; pre-lunch 195-246 post lunch 772=730; pre-supper 172-256 post-supper 189-281. He is monitoring his ketones generally in moderate range. Aayush has also started using the treadmill and is assessing impact of this on this blood sugars. INTERVENTION: Reviewed Aayush' current regimen acknowledging inadequate insulin coverage for food and blood sugars as well as inadequate basal insulin given his overall high blood sugars taking total daily dose of 50units. Explained generally make one insulin adjustment at a time, but given he will be followed daily by Ji Bruce Aayush is willing to increase Lantus dose 2 units every 1-2 days until fasting blood sugar is less than 180mg/dl. He will use a more intensified insulin dosing scale of 1 unit covers 7.5 grams carbohydrate and 1 unit corrects 25mg/dl starting at 140mg/d. Aayush was able to calculate this in his head and wishes to do this for himself. Reviewed use of Ketone testing sticks and ketones in relation to physical activity. He is complimented on his physical activity initiatives. PLAN: As above, follow new insulin dosing guideline and follow up with Fernandez as scheduled. Face to face 50 minutes Billed 1 DSME unit. No group education at this time. ACTION PLAN: Individual DSME/T ____ units billed TIME IN: OUT: No DM group education series being offered at this time.
== END 2019-10-25 02:21 ==
PROVIDERS: PCP Family Medicine; Visit Provider Dietitian, Registered
DX: E11.9 Type 2 diabetes mellitus without complications (principal); Z79.4 Long term (current) use of insulin; Z71.3 Dietary counseling and surveillance
CPT/HCPCS: G0108

== ENCOUNTER 2020-10-12 05:17 | Outpatient (CLI) | payer MEDICAID, SELFPAY ==
[2020-10-12 10:32] LABS: ALT 31 U/L (16-63); AST 13 U/L (15-37); Albumin 4.1 g/dL (3.4-5.0); Alkaline Phosphatase 104 U/L (46-116); Anion Gap 8.5 mmol/L (3-11); BUN 13 mg/dL (7-18); Bilirubin, Total 0.6 mg/dL (0.2-1.0); CO2 28.5 mmol/L (21.0-32.0); CREATININE 1.08 mg/dL (0.70-1.30); Calcium 9.3 mg/dL (8.5-10.1); Calculated LDL 71 mg/dL (<100); Chloride 102 mmol/L (98-107); Cholesterol 138 mg/dL (<200); Glucose 90 mg/dL (74-106); HDL Cholesterol 46 mg/dL (40-60); Potassium 4.5 mmol/L (3.5-5.1); Sodium 139 mmol/L (136-145); Total Protein 7.6 g/dL (6.4-8.2); Triglyceride 105 mg/dL (<150)
[2020-10-12 10:50] LABS: Vitamin D 25 Total 47.1 ng/ml (30-100)
[2020-10-18 14:06] LABS: Hemoglobin A1C 4.8 % (<5.7)
== END 2020-10-12 05:37 ==
PROVIDERS: PCP Family Medicine; Visit Provider Family Medicine
DX: E13.9 Other specified diabetes mellitus without complications (principal); E59 Dietary selenium deficiency
CPT/HCPCS: 36415; 80053; 80061; 82306; 83036

== ENCOUNTER 2020-10-13 20:13 | Outpatient (REF) | payer MEDICAID, SELFPAY ==
[2020-10-13 15:21] LABS: COMMENT (LAB VIEW ONLY) 181.31 mg/dL; Microalb ug/mg Crea 3.7 ug/mg Cr
== END 2020-10-13 20:33 ==
LOC: NCHCN 20:13
PROVIDERS: PCP Family Medicine; Visit Provider Family Medicine
DX: E13.9 Other specified diabetes mellitus without complications (principal); E55.9 Vitamin D deficiency, unspecified
CPT/HCPCS: 82043; 82570

== ENCOUNTER 2020-12-13 05:17 | Emergency (ER) | payer MEDICAID, SELFPAY ==
[2020-12-13] VITALS (48 sets, daily range): BP systolic 90–125; BP diastolic 54–83; PULSE 88–125; RESP 4–24; TEMP 36.5–37.2; O2SAT 95–100
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
[2020-12-13] MEDS: methylPREDNISolone SUCC 125 MG VIAL IVP (05:38)
[2020-12-13] MEDS: Albuterol/Ipratropium 3 ML UPD VIAL 6 ML UPD (05:39)
[2020-12-13] MEDS: EPINEPHrine for Inhalation 0.5 ML VIAL UPD (05:39)
[2020-12-13 05:40] LABS: Abs Immature Grans 0.05 10^3/uL (0.0-0.06); Absolute Basophil Count 0.08 10^3/uL (0.0-0.2); Absolute Eosinophil Count 0.66 10^3/uL (0.0-0.7); Absolute Lymphocyte Count 3.07 10^3/uL (1.2-3.4); Absolute Monocyte Count 0.71 10^3/uL (0.1-0.8); BE (Venous) -1 mmol/L (-2-3); Basophils % 0.7; Eosinophils % 5.6; HCO3 (Venous) 25 mmol/L (23-28); HCT 50.1 % (40.0-50.0); HGB 16.7 g/dL (13.5-17.5); Immature Grans % 0.4; Lymphocytes % 25.9; MCH 27.8 pg (27.0-33.0); MCHC 33.3 % (32.0-36.0); MCV 83.4 fL (80-95); MPV 9.7 fL (8.0-11.0); Neutrophils % 61.4; Nucleated RBC 0 %; O2 Sat (Venous) 45 %; Platelet Count 318 10^3/uL (130-400); RBC 6.01 10^6/uL (4.36-5.78); RDW 12.4 % (11.8-14.1); RDW-SD 37.7 fL; TCO2 (Venous) 22 mmol/L (24-29); WBC 11.87 10^3/uL (4.4-10.8); pCO2 (Venous) 46 mmHg (41-51); pH (Venous) 7.34 (7.31-7.41); pO2 (Venous) 26 mmHg
[2020-12-13] MEDS: Sodium Chloride 0.9% for Inhalation 3 ML VIAL UPD (05:42)
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
[2020-12-13 05:49] LABS: Lactate 4.7 mmol/L (0.6-1.4)
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
[2020-12-13 05:50] LABS: Absolute Neutrophil Count 7.29 10^3/uL (1.2-6.7)
[2020-12-13 05:58] LABS: ALT 34 U/L (16-63); AST 13 U/L (15-37); Albumin 4.4 g/dL (3.4-5.0); Alkaline Phosphatase 117 U/L (46-116); Anion Gap 14.9 mmol/L (3-11); BUN 19 mg/dL (7-18); Bilirubin, Total 0.3 mg/dL (0.2-1.0); CO2 25.1 mmol/L (21.0-32.0); CREATININE 1.2 mg/dL (0.70-1.30); Chloride 102 mmol/L (98-107); Glucose 104 mg/dL (74-106); Potassium 3.9 mmol/L (3.5-5.1); Sodium 142 mmol/L (136-145); Total Protein 8.8 g/dL (6.4-8.2)
[2020-12-13 06:05] LABS: Carboxyhemoglobin 1.7 %
[2020-12-13] MEDS: Normal Saline 1,000 ML 1000 ML IV ×2 (06:10→07:42)
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
[2020-12-13 08:20] LABS: Lactate 3.7 mmol/L (0.6-1.4)
[2020-12-13 08:21] LABS: BE (Venous) -3 mmol/L (-2-3); HCO3 (Venous) 23 mmol/L (23-28); O2 Sat (Venous) 78 %; TCO2 (Venous) 21 mmol/L (24-29); pCO2 (Venous) 40 mmHg (41-51); pH (Venous) 7.36 (7.31-7.41); pO2 (Venous) 44 mmHg
[2020-12-13 08:32] LABS: Anion Gap 10.9 mmol/L (3-11); BUN 19 mg/dL (7-18); CO2 24.1 mmol/L (21.0-32.0); CREATININE 1.1 mg/dL (0.70-1.30); Calcium 8.1 mg/dL (8.5-10.1); Chloride 107 mmol/L (98-107); Glucose 167 mg/dL (74-106); Sodium 142 mmol/L (136-145)
[2020-12-13] MEDS: Potassium Chloride 20 MEQ TABCR 40 MEQ PO (09:14)
[2020-12-13] MEDS: Inhaler, Assist Device 1 EACH MC (10:27)
[2020-12-13] MEDS: Albuterol HFA 8 GM 60 PUFF INH IH (10:27)
== END 2020-12-13 11:43 | disposition home or self-care (01) ==
PROVIDERS: Student in an Organized Health Care Education/Training Program; Emergency Provider Physician Assistant; PCP Family Medicine
DX: T59.811A Toxic effect of smoke, accidental (unintentional), initial encounter (principal); X00.1XXA Exposure to smoke in uncontrolled fire in building or structure, initial encounter; E87.6 Hypokalemia; E11.9 Type 2 diabetes mellitus without complications; Z79.4 Long term (current) use of insulin
CPT/HCPCS: 36415; 36416; 80048; 80053; 82375; 82805; 82962; 94640; 96361; 96372; 96374; 99284; 71046; 83605; 85025; 99285; J2930; J7620

== ENCOUNTER 2021-02-20 16:58 | Outpatient (REF) | payer MEDICAID, SELFPAY ==
[2021-02-20 20:59] LABS: Anion Gap 9.5 mmol/L (3-11); BUN 20 mg/dL (7-18); CO2 29.5 mmol/L (21.0-32.0); CREATININE 1.1 mg/dL (0.70-1.30); Calcium 9.9 mg/dL (8.5-10.1); Chloride 103 mmol/L (98-107); Glucose 95 mg/dL (74-106); Potassium 4.2 mmol/L (3.5-5.1); Sodium 142 mmol/L (136-145)
[2021-02-20 21:14] LABS: Hemoglobin A1C 4.8 % (<5.7)
== END 2021-02-20 16:59 | disposition home or self-care (01) ==
LOC: LBN 16:58
PROVIDERS: PCP Family Medicine; Visit Provider Emergency Medicine
DX: I10 Essential (primary) hypertension (principal); E11.9 Type 2 diabetes mellitus without complications
CPT/HCPCS: 80048; 83036

== ENCOUNTER 2021-03-27 16:41 | Outpatient (REF) | payer MEDICAID, SELFPAY ==
[2021-03-27 20:48] LABS: Anion Gap 8.2 mmol/L (3-11); BUN 16 mg/dL (7-18); CO2 30.8 mmol/L (21.0-32.0); Calcium 9.4 mg/dL (8.5-10.1); Chloride 105 mmol/L (98-107); Glucose 69 mg/dL (74-106); Potassium 4.6 mmol/L (3.5-5.1); Sodium 144 mmol/L (136-145)
[2021-03-29 17:56] LABS: C-Peptide 5.6 ng/mL (1.1 - 4.4)
== END 2021-03-27 16:42 | disposition home or self-care (01) ==
LOC: LBN 16:41
PROVIDERS: PCP Emergency Medicine; Visit Provider Emergency Medicine
DX: I10 Essential (primary) hypertension (principal); E11.9 Type 2 diabetes mellitus without complications; E13.9 Other specified diabetes mellitus without complications
CPT/HCPCS: 80048; 83036; 84681

== ENCOUNTER 2021-08-23 17:46 | Outpatient (REF) | payer MEDICAID, SELFPAY ==
[2021-08-23 18:08] LABS: Abs Immature Grans 0.02 10^3/uL (0.0-0.06); Absolute Basophil Count 0.05 10^3/uL (0.0-0.2); Absolute Eosinophil Count 0.21 10^3/uL (0.0-0.7); Absolute Lymphocyte Count 3.22 10^3/uL (1.2-3.4); Absolute Monocyte Count 0.61 10^3/uL (0.1-0.8); Basophils % 0.7; Eosinophils % 2.8; HCT 49.2 % (40.0-50.0); HGB 15.8 g/dL (13.5-17.5); Immature Grans % 0.3; Lymphocytes % 42.3; MCH 27.7 pg (27.0-33.0); MCHC 32.1 % (32.0-36.0); MCV 86.2 fL (80-95); MPV 10.3 fL (8.0-11.0); Neutrophils % 45.9; Nucleated RBC 0 %; Platelet Count 332 10^3/uL (130-400); RBC 5.71 10^6/uL (4.36-5.78); RDW 12.2 % (11.8-14.1); RDW-SD 38.5 fL; WBC 7.61 10^3/uL (4.4-10.8)
[2021-08-23 18:16] LABS: ALT 34 U/L (16-63); AST 16 U/L (15-37); Albumin 4.2 g/dL (3.4-5.0); Alkaline Phosphatase 102 U/L (46-116); Anion Gap 5.5 mmol/L (3-11); BUN 22 mg/dL (7-18); Bilirubin, Total 0.3 mg/dL (0.2-1.0); C-Reactive Protein 0.26 mg/dL (0.0-0.3); CO2 33.5 mmol/L (21.0-32.0); CREATININE 1.1 mg/dL (0.70-1.30); Calcium 9.3 mg/dL (8.5-10.1); Chloride 105 mmol/L (98-107); Glucose 96 mg/dL (74-106); Potassium 4.4 mmol/L (3.5-5.1); Sodium 144 mmol/L (136-145); Total Protein 7.4 g/dL (6.4-8.2)
== END 2021-08-23 17:47 | disposition home or self-care (01) ==
LOC: LBN 17:46
PROVIDERS: PCP Emergency Medicine; Visit Provider Emergency Medicine
DX: E11.9 Type 2 diabetes mellitus without complications (principal); R19.7 Diarrhea, unspecified
CPT/HCPCS: 80053; 83036; 85025; 86140

== ENCOUNTER 2023-08-04 04:21 | Outpatient (CLI) | payer MEDICAID, SELFPAY ==
[2023-08-04 13:11] LABS: ALT 32 U/L (16-63); AST 15 U/L (15-37); Albumin 3.5 g/dL (3.4-5.0); Alkaline Phosphatase 82 U/L (46-116); Anion Gap 7.2 mmol/L (3-11); BUN 18 mg/dL (7-18); Bilirubin, Total 0.5 mg/dL (0.2-1.0); CO2 26.8 mmol/L (21.0-32.0); CREATININE 1.1 mg/dL (0.70-1.30); Calcium 9.2 mg/dL (8.5-10.1); Calculated LDL 62 mg/dL (<100); Chloride 103 mmol/L (98-107); Cholesterol 131 mg/dL (<200); Glucose 93 mg/dL (74-106); HDL Cholesterol 46 mg/dL (40-60); Sodium 137 mmol/L (136-145); Total Protein 7.1 g/dL (6.4-8.2); Triglyceride 115 mg/dL (<150)
[2023-08-04 13:29] LABS: Hemoglobin A1C 5.2 % (<5.7)
== END 2023-08-04 04:22 | disposition home or self-care (01) ==
LOC: LOS 04:21
PROVIDERS: PCP Family Medicine; Visit Provider Family Medicine
DX: R73.01 Impaired fasting glucose (principal); Z13.6 Encounter for screening for cardiovascular disorders; Z00.00 Encounter for general adult medical examination without abnormal findings
CPT/HCPCS: 36415; 80053; 80061; 83036

== ENCOUNTER 2024-12-08 01:05 | Outpatient (CLI) | payer MEDICAID, SELFPAY ==
[2024-12-08 12:43] LABS: ALT 73 U/L (16-63); AST 31 U/L (15-37); Albumin 3.7 g/dL (3.4-5.0); Alkaline Phosphatase 83 U/L (46-116); Anion Gap 5.6 mmol/L (3-11); BUN 15 mg/dL (7-18); Bilirubin, Total 0.56 mg/dL (0.2-1.0); CO2 29.4 mmol/L (21.0-32.0); CREATININE 1.1 mg/dL (0.70-1.30); Calcium 9.2 mg/dL (8.5-10.1); Calculated LDL 93 mg/dL (<100); Chloride 104 mmol/L (98-107); Cholesterol 176 mg/dL (<200); Estimated GFR 90.34 (mL/min/1.73m2); Glucose 95 mg/dL (74-106); HDL Cholesterol 52 mg/dL (40-60); Sodium 139 mmol/L (136-145); Total Protein 7.3 g/dL (6.4-8.2); Triglyceride 158 mg/dL (<150)
[2024-12-08 12:53] LABS: Hemoglobin A1C 5.4 % (<5.7)
== END 2024-12-08 01:06 | disposition home or self-care (01) ==
LOC: LOS 01:05
PROVIDERS: PCP Family Medicine; Visit Provider Family Medicine
DX: Z00.00 Encounter for general adult medical examination without abnormal findings (principal); R73.01 Impaired fasting glucose; Z13.6 Encounter for screening for cardiovascular disorders
CPT/HCPCS: 36415; 80053; 80061; 83036